=== PATIENT | female | born 1945 | race Two or more races ===

== ENCOUNTER 2018-05-10 09:36 | Outpatient (CLI) | payer OTHER | END 2018-05-10 09:40 | disposition home or self-care (01) | LOC: SONOGRAMA 09:36 | DX: E03.8 Other specified hypothyroidism (principal); E04.1 Nontoxic single thyroid nodule ==

== ENCOUNTER 2019-03-28 05:20 | Day surgery (SDC) | payer OTHER ==
[~2019-03-28 05:20] MED LIST: AMILORIDE HCL5 MG PO; BENICAR40 MG PO; CARDURA XL4 MG PO; CRESTOR5 MG PO; LASIX20 MG PO; METOPROLOL SUCC25 MG PO; NEURONTIN300 MG PO; SYNTHROID50 MCG PO; TRAMADOL HCL50 MG PO; XARELTO20 MG PO
[2019-03-28] MEDS ORDERED: MACROBID 100 M100 MG PO (10:23)
[2019-03-28] MEDS ORDERED: ULTRACET PO (11:08)
== END 2019-03-28 13:25 | disposition home or self-care (01) ==
LOC: CIR.AMB 05:20
DX: N81.11 Cystocele, midline (principal); N81.5 Vaginal enterocele